=== PATIENT | male | born 1960 | race Caucasian/White ===

== ENCOUNTER 2019-02-26 21:25 | Emergency (ER) | payer BC ==
[~2019-02-26] VITALS: Ht 188 cm; Wt 90.9 kg
[2019-02-26 21:29] VITALS: BP 142/91
[2019-02-26] MEDS ORDERED: proparacaine 0.5% ophthalmic drops 15ml EACHEYE ONE (22:00)
[2019-02-26] MEDS ORDERED: TOBR5DRO2 LEFTEYE (22:22)
== END 2019-02-26 22:34 | disposition home or self-care (01) ==
LOC: ER 21:26
DX: S05.02XA Injury of conjunctiva and corneal abrasion without foreign body, left eye, initial encounter (principal); X58.XXXA Exposure to other specified factors, initial encounter; Y93.89 Activity, other specified; Y92.89 Other specified places as the place of occurrence of the external cause; Y99.9 Unspecified external cause status
CPT/HCPCS: 99283